=== PATIENT | female | born 1970 | race Two or more races ===

== ENCOUNTER 2019-07-03 08:26 | Outpatient (CLI) | payer BC | END 2019-07-03 10:14 | disposition home or self-care (01) | LOC: MAMO-SONO 08:26 | DX: Z12.31 Encounter for screening mammogram for malignant neoplasm of breast (principal); Z87.898 Personal history of other specified conditions; N60.29 Fibroadenosis of unspecified breast; R10.84 Generalized abdominal pain ==

== ENCOUNTER 2019-07-03 08:45 | Outpatient (CLI) | payer BC | END 2019-07-03 09:17 | disposition home or self-care (01) | LOC: LAB 08:45 | DX: E78.2 Mixed hyperlipidemia (principal); I11.9 Hypertensive heart disease without heart failure; N30.00 Acute cystitis without hematuria; E11.42 Type 2 diabetes mellitus with diabetic polyneuropathy; Z12.11 Encounter for screening for malignant neoplasm of colon; E11.22 Type 2 diabetes mellitus with diabetic chronic kidney disease; E06.3 Autoimmune thyroiditis; E83.32 Hereditary vitamin D-dependent rickets (type 1) (type 2) ==

== ENCOUNTER → 2019-07-05 11:05 | Outpatient (CLI) | payer BC | END | disposition home or self-care (01) | LOC: LAB 11:05 | DX: E78.2 Mixed hyperlipidemia (principal); I11.9 Hypertensive heart disease without heart failure; N30.00 Acute cystitis without hematuria; E11.42 Type 2 diabetes mellitus with diabetic polyneuropathy; E11.22 Type 2 diabetes mellitus with diabetic chronic kidney disease; Z12.11 Encounter for screening for malignant neoplasm of colon; E83.32 Hereditary vitamin D-dependent rickets (type 1) (type 2); E06.3 Autoimmune thyroiditis ==